=== PATIENT | male | born 1945 | race Caucasian/White ===

== ENCOUNTER 2025-07-20 07:22 | Day surgery (SDC) | payer OTHER ==
[~2025-07-20] VITALS: Ht 180.3 cm; Wt 110.2 kg
[~2025-07-20 07:22] MED LIST: Balanced Salt Epinephrine Irrigation Solution 500 mL IR SCH; CARV3.125 PO; CIPR500 PO; DIGOX125 MC1 PO; ELIQUIS2.5 MG PO; JARDIANCE10 MG PO; LISI20 PO; METO100ER PO; Moxifloxacin HCL 0.5 MG/0.1 ML 0.4MLSYR LEFTEYE SCH; PHENYLEPHRINE\\TROPICAMIDE\\TETRACAINE OPHTHALMIC DILATING SOLN LEFTEYE PRN; Povidone-Iodine 450 DROP/30 ML Solution LEFTEYE SCH; Povidone-Iodine 450 DROP/30 ML Solution ONE; ROSU10TA PO; Tetracaine HCl/Pf 0.5% Opth Soln 4 ml ONE; ZOCOR20 MG PO
[2025-07-20] MEDS ORDERED: ENTRESTO 24 MG1 EACH PO (08:14)
[2025-07-20] MEDS ORDERED: EUTHYROX50 MCG PO (08:15)
[2025-07-20] MEDS ORDERED: Midazolam HCl 1MG / ML 2ML Vial ONE (08:39)
[2025-07-20] MEDS ORDERED: FentaNYL Citrate 50 MCG/ML 2 ML Injection ONE (08:39)
[2025-07-20] MEDS ORDERED: Tetracaine HCl 0.5% Opth Soln 15 ml LEFTEYE ONE (08:56)
== END 2025-07-20 09:40 | disposition home or self-care (01) ==
LOC: ORSCSDS 07:22 → ORSCMMR 07:22 → ORSCSDS 07:30
PROVIDERS: Student in an Organized Health Care Education/Training Program
PROC: 08RK3JZ Replacement of Left Lens with Synthetic Substitute, Percutaneous Approach (ICD-10-PCS; principal; 2025-07-20 09:00)
DX: H25.812 Combined forms of age-related cataract, left eye (principal); H21.81 Floppy iris syndrome; I48.91 Unspecified atrial fibrillation; I10 Essential (primary) hypertension; E07.9 Disorder of thyroid, unspecified; G47.33 Obstructive sleep apnea (adult) (pediatric); E66.9 Obesity, unspecified; Z68.33 Body mass index [BMI] 33.0-33.9, adult; Z79.01 Long term (current) use of anticoagulants; Z79.899 Other long term (current) drug therapy
CPT/HCPCS: J2250; J3010; J7120; V2632

== ENCOUNTER 2025-08-02 08:49 | Day surgery (SDC) | payer OTHER ==
[~2025-08-02] VITALS: Ht 180.3 cm; Wt 107.8 kg
[~2025-08-02 08:49] MED LIST changes: +ENTRESTO 24 MG1 EACH PO; +EUTHYROX50 MCG PO; -Moxifloxacin HCL 0.5 MG/0.1 ML 0.4MLSYR LEFTEYE SCH; +Moxifloxacin HCL 0.5 MG/0.1 ML 0.4MLSYR RIGHTEYE SCH; +NS 500 ML IV ONE; -PHENYLEPHRINE\\TROPICAMIDE\\TETRACAINE OPHTHALMIC DILATING SOLN LEFTEYE PRN; +PHENYLEPHRINE\\TROPICAMIDE\\TETRACAINE OPHTHALMIC DILATING SOLN RIGHTEYE PRN; -Povidone-Iodine 450 DROP/30 ML Solution LEFTEYE SCH; +Povidone-Iodine 450 DROP/30 ML Solution RIGHTEYE SCH
[2025-08-02] MEDS ORDERED: NS 500 ML IV ONE ×2 (09:33)
--- NOTE | 2025-08-02 09:34 | NUR ---
08/02/25 0934 Yahir Vincent CALL LIGHT WITHIN REACH. EYE DROPS IN AROUND 926
[2025-08-02] MEDS ORDERED: Tetracaine HCl 0.5% Opth Soln 15 ml RIGHTEYE ONE (09:56)
[2025-08-02] MEDS ORDERED: Midazolam HCl 1MG / ML 2ML Vial ONE (09:56)
--- NOTE | 2025-08-02 10:23 | NUR ---
08/02/25 [facility] AT BEDSIDE
== END 2025-08-02 10:42 | disposition home or self-care (01) ==
LOC: ORSCSDS 08:49
PROVIDERS: Student in an Organized Health Care Education/Training Program
PROC: 08RJ3JZ Replacement of Right Lens with Synthetic Substitute, Percutaneous Approach (ICD-10-PCS; principal; 2025-08-02 10:30)
DX: H25.811 Combined forms of age-related cataract, right eye (principal); H21.81 Floppy iris syndrome; H52.201 Unspecified astigmatism, right eye; Z96.1 Presence of intraocular lens; I48.20 Chronic atrial fibrillation, unspecified; I50.20 Unspecified systolic (congestive) heart failure; Z85.850 Personal history of malignant neoplasm of thyroid; I10 Essential (primary) hypertension; G47.33 Obstructive sleep apnea (adult) (pediatric); E66.9 Obesity, unspecified; Z68.33 Body mass index [BMI] 33.0-33.9, adult; Z79.01 Long term (current) use of anticoagulants; Z79.84 Long term (current) use of oral hypoglycemic drugs; Z79.899 Other long term (current) drug therapy
CPT/HCPCS: J2250; J7040; V2632